=== PATIENT | male | born 1980 | race Caucasian/White ===

== ENCOUNTER 2017-09-23 07:01 | Emergency (ER) | payer OTHER ==
[~2017-09-23] VITALS: Ht 180.3 cm; Wt 113.4 kg
[~2017-09-23 07:01] MED LIST: HYDACE5 PO; HYDMOR2 PO; IBUP200; IBUP800 PO; OXYACE5T PO; PROM25 PO; RANI150 PO
[2017-09-23 07:46] LABS: BASOPHILS ABSOLUTE AUTO 0.06 K/mm3 (0.00-0.23); BASOPHILS PERCENT AUTO 1 % (0-2); EOSINOPHILS ABSOLUTE AUTO 0.21 K/mm3 (0.00-0.68); EOSINOPHILS PERCENT AUTO 2 % (0-6); Hematocrit 43.6 % (37.0-53.0); IMMATURE GRAN ABSOLUTE AUTO 0.04 K/mm3 (0.00-0.10); IMMATURE GRAN PERCENT AUTO 0 % (0-1); LYMPHOCYTES ABSOLUTE AUTO 3.06 K/mm3 (0.84-5.20); LYMPHOCYTES PERCENT AUTO 28 % (21-46); MONOCYTES ABSOLUTE AUTO 0.66 K/mm3 (0.16-1.47); MONOCYTES PERCENT AUTO 6 % (4-13); Mean Corpuscular HGB 31.7 pg (26.0-34.0); Mean Corpuscular HGB Conc 34.4 g/dL (31.5-36.5); Mean Corpuscular Volume 92 fL (80-100); Mean Platelet Volume 10.1 fL (9.1-12.4); NEUTROPHILS ABSOLUTE AUTO 6.91 K/mm3 (1.96-9.15); NEUTROPHILS PERCENT AUTO 63 % (41-73); Platelet Count 341 K/mm3 (150-400); RDW Coefficient Variation 12.2 % (11.7-14.2); RDW Standard Deviation 40.8 fL (35.1-46.3); Red Blood Cell Count 4.73 M/mm3 (4.30-5.90); White Blood Cell Count 10.94 K/mm3 (4.00-11.30)
[2017-09-23 08:03] LABS: Alanine Aminotransfer (ALT/SGP 32 U/L (12-78); Albumin, Blood 3.8 g/dL (3.4-5.0); Alk Phos 78 U/L (50-136); Anion Gap 14 mmol/L (6-16); Aspartate Aminotrans (AST/SGOT 13 U/L (12-37); Bilirubin, Total 0.4 mg/dL (0.1-1.0); Blood Urea Nitrogen 17 mg/dL (8-24); Bun/Creatinine Ratio 14.4 (12.0-20.0); CO2, Blood 20 mmol/L (21-32); Calcium, Blood 8.6 mg/dL (8.5-10.1); Chloride, Blood 108 mmol/L (98-108); Creatinine, Blood 1.18 mg/dL (0.60-1.20); Globulin, Blood 3.9 g/dL (2.2-4.0); Glomerular Filtration Rate >60 (60-); Glucose, Blood 139 mg/dL (70-99); Potassium, Blood 3.4 mmol/L (3.5-5.5); Sodium, Blood 142 mmol/L (136-145); Total Protein, Blood 7.7 g/dL (6.4-8.2)
[2017-09-23] MEDS ORDERED: Zofran Odt4 MG SL (08:38)
[2017-09-23] MEDS ORDERED: HYDMOR2 PO (08:38)
[2017-09-23] MEDS ORDERED: Flomax0.4 MG PO (08:38)
== END 2017-09-23 10:09 | disposition home or self-care (01) ==
LOC: ER 07:01
PROVIDERS: Emergency Medicine
DX: N13.2 Hydronephrosis with renal and ureteral calculous obstruction (principal); Z88.0 Allergy status to penicillin
CPT/HCPCS: 36415; 74176; 80053; 81000; 83690; 85025; 96361; 96374; 96375; 96376; 99284; J1885; J2405; J3010; J7030

== ENCOUNTER 2018-07-17 08:59 | Day surgery (SDC) | payer OTHER, BC ==
[~2018-07-17] VITALS: Ht 180.3 cm; Wt 115.4 kg
[~2018-07-17 08:59] MED LIST changes: +Flomax0.4 MG PO; +HYDCHL25 PO; +ZESTRIL40 MG PO; +Zofran Odt4 MG SL
[2018-07-17] MEDS ORDERED: HYDR1TAB94 PO (10:26)
--- NOTE | 2018-07-17 10:33 | NUR ---
07/17/18 1033 Donaldo Cheng 1ST IV ATTEMPT IN LFA UNSUCCESSFUL, ORSC.LISSA 2ND IV ATTEMPT IN LFA UNSUCCESSFUL, ORSC.MINI 3RD IV ATTEMPT IN LH SUCCESSFUL, ORSC.MAEGAN
--- NOTE | 2018-07-17 15:23 | NUR ---
07/17/18 1523 Florinda Mcgee late entry: report was given to [facility].BDK AFTER TRANSFER TO SDU. PT WAS IN STABLE CONDITION AND WAS ASSISTED TO CHAIR AND POLAR PACK STARTED
--- NOTE | 2018-07-17 15:49 | NUR ---
07/17/18 1549 Donaldo Cheng LATE ENTRY NARRATIVE RECEIVED REPORT FROM [facility].JOSELINE AND TOOK OVER PATIENT CARE @1340 PATIENT RESTING IN SDU RECLINER, VSS, TOLERATING PO FLUIDS WELL. POLAR PACK IS IN PLACE AND RUNNING. PATIENT REPORTS NUMB FINGERS AND NOT FEELING ANY PAIN YET. PATIENT'S DAD/RAY IS AT CHAIRSIDE. BOTH PATIENT AND DAD EXPRESSES READINESS TO GO HOME. DISCHARGE INSTRUCTIONS REVIEWED WITH PATIENT AND DAD, INCLUDING INCENTIVE SPIROMETER AND POLAR PACK TEACHINGS, BOTH DENY HAVING ANY QUESTIONS AT THIS MOMENT. NURSE ASSISTED PATIENT VIA WC TO BATHROOM, THEN TO HIS RIDE HOME. ONCE OUTSIDE PATIENT BECAME NAUSIOUS AND VOMITTED 1X SMALL AMOUNT OF BILE COLORED EMESIS. PATIENT STATED HE FELT MUCH BETTER AFTER THROWING UP. PATIENT ASKED IF WE COULD CONTACT DR SAENZ OFFICE FOR ANTINAUSEA MEDICATION. [facility].HECTOR CALLED DR SAENZ OFFICE FOR RX. NURSE ASSISTED PATIENT BACK INTO HIS RIDE HOME & LEFT.
== END 2018-07-17 15:10 | disposition home or self-care (01) ==
LOC: ORSCSDS 08:59
PROVIDERS: Orthopaedic Surgery
PROC: 0RBJ4ZZ Excision of Right Shoulder Joint, Percutaneous Endoscopic Approach (ICD-10-PCS; principal; 2018-07-17 10:30)
PROC: 0LS14ZZ Reposition Right Shoulder Tendon, Percutaneous Endoscopic Approach (ICD-10-PCS; principal; 2018-07-17 10:30)
DX: M75.111 Incomplete rotator cuff tear or rupture of right shoulder, not specified as traumatic (principal); M75.21 Bicipital tendinitis, right shoulder; S43.431A Superior glenoid labrum lesion of right shoulder, initial encounter; I10 Essential (primary) hypertension; Z87.891 Personal history of nicotine dependence; Z79.899 Other long term (current) drug therapy
CPT/HCPCS: C1713; J0330; J2250; J3010; J3370; J7120

== ENCOUNTER 2022-02-24 07:32 | Day surgery (SDC) | payer BC, OTHER ==
[~2022-02-24] VITALS: Ht 180.3 cm; Wt 115.2 kg
[~2022-02-24 07:32] MED LIST changes: +HYDR1TAB94 PO
[2022-02-24] MEDS ORDERED: FLOMAX0.4 MG PO (07:58)
--- NOTE | 2022-02-24 09:07 | NUR ---
02/24/22 0907 RIANNA HWANG LOCAL DRAWN UP AND POURED ONTO STERILE FIELD FOR USE DURING CASE BY DR. JENNINGS.
--- NOTE | 2022-02-24 11:12 | NUR ---
02/24/22 1111 VESNA GALICIA PT AT SIDE OF RECLINER. PT EATING AND DRINKING W/O DIFF. PT STATES PAIN 12/04. 25MCG FENTANYL GIVEN WHICH EQUALS 125MCG TOTAL. ALSO GIVEN PERCOCET 5/325MG.
== END 2022-02-24 11:37 | disposition home or self-care (01) ==
LOC: ORSCSDS 07:32
PROVIDERS: Orthopaedic Surgery
PROC: 0SBD4ZZ Excision of Left Knee Joint, Percutaneous Endoscopic Approach (ICD-10-PCS; principal; 2022-02-24 08:45)
DX: S83.232A Complex tear of medial meniscus, current injury, left knee, initial encounter (principal); M94.262 Chondromalacia, left knee; I10 Essential (primary) hypertension; K21.9 Gastro-esophageal reflux disease without esophagitis; Z79.899 Other long term (current) drug therapy; E66.9 Obesity, unspecified; Z68.35 Body mass index [BMI] 35.0-35.9, adult; F17.210 Nicotine dependence, cigarettes, uncomplicated
CPT/HCPCS: A9270; J0171; J0690; J1100; J2250; J2405; J2704; J2795; J3010; J7120

== ENCOUNTER 2024-10-08 08:58 | Day surgery (SDC) | payer OTHER ==
[2024-10-08] VITALS (13 sets, daily range): BP systolic 104–131; BP diastolic 67–93
[~2024-10-08] VITALS: Ht 180.3 cm; Wt 105.8 kg
[~2024-10-08 08:58] MED LIST changes: +FLOMAX0.4 MG PO; +Lactated Ringer's 1,000 ML IV SCH
[2024-10-08] MEDS ORDERED: propofoL 40 ML IV ONE (09:53)
[2024-10-08] MEDS ORDERED: Midazolam HCl 1MG / ML 2ML Vial ONE (10:18)
--- NOTE | 2024-10-08 10:41 | NUR ---
10/08/24 1041 Gt Fung CONFIRMED AND REVIEWED H&P, MEDCICATIONS, ALLERGIES, MEDICAL HISTORY, RESPIRATORY HISTORY, VITAL SIGNS, 3-LEAD EKG, CONSENTS, AND PHYSICIAN ORDERS. PATIENT CONFIRMS NPO STATUS AND AGREES WITH SCHEDULED PROCEDURE. MONITOR INTACT WITH CONTINUOUS PULSE OXIMETRY, CAPNOGRAPHY, 3-LEAD EKG, INTERMITTENT BP. SUPPLEMENTAL O2 TO BE TITRATED THROUGHOUT PROCEDURE TO MAINTAIN O2 SATURATION ABOVE 90%. PATIENT DETERMINED TO BE ASA APPROPRIATE FOR PROPOFOL SEDATION PRIOR TO START OF PROCEDURE BY DR. OWENS.
--- NOTE | 2024-10-08 11:36 | NUR ---
DISCHARGE NOTE PT A&OX4, BREATHING RA, VSS, NO COMPLAINTS, TOLERATING PO FLUIDS. Patient up to Ambulate independently. Gait steady. Discharge instructions reviewed with patient. Patient verbalizes understanding. Copy given to patient to take home. Discharged via wheelchair to private car for ride home.
== END 2024-10-08 11:32 | disposition home or self-care (01) ==
LOC: ORSCMMR 08:58 → ORD 09:30 → ORSCMMR 09:30
PROVIDERS: Internal Medicine Gastroenterology
PROC: 0DJD8ZZ Inspection of Lower Intestinal Tract, Via Natural or Artificial Opening Endoscopic (ICD-10-PCS; principal; 2024-10-08 09:30)
DX: Z12.11 Encounter for screening for malignant neoplasm of colon (principal); I10 Essential (primary) hypertension; Z79.899 Other long term (current) drug therapy
CPT/HCPCS: J2250; J2704; J7120